=== PATIENT | female | born 1980 | race American Indian/Alaskan Native ===

== ENCOUNTER 2019-07-19 09:18 | Outpatient (CLI) | payer OTHER ==
--- NOTE | 2019-07-19 15:29 | Mammography Report ---
DIGITAL SCREENING MAMMOGRAM WITH CAD, 07/19/2019 INDICATION: Routine screening mammography. TECHNIQUE: Digital bilateral 2D mammography was obtained in the craniocaudal and mediolateral obliq ue projections. This examination was interpreted with the benefit of Computer-Aided Detection analysi s. COMPARISON: 06/29/2015 FINDINGS: Breast Density: The breasts are extremely dense, which lowers the sensitivity of mammography. There is no evidence of dominant mass, suspicious calcifications or architectural distortion in eithe r breast. Left upper outer benign scar with stable benign skin thickening. IMPRESSION: No mammographic evidence of malignancy. Follow up recommendation: Routine yearly BI-RADS Category 2: Benign. A "normal" or negative report should not discourage follow up or biopsy of a clinically significant f inding. A written summary of these findings will be mailed to the patient. The patient will be entered into a mammography reporting system which will generate a reminder letter for the patient's next appointmen t at the appropriate interval. The [employer] recommends yearly mammograms starting at age 40 and continuing as l kallie as a woman is in good health. Breast MRI is recommended for women with an approximate 20-25% or greater lifetime risk of breast cancer, including women with a strong family history of breast or ova kev cancer or who have been treated for Hodgkin's disease. Signer Name: Altaf Hays MD Signed: 07/19/2019 3:25 PM Workstation Name: [id number]
== END 2019-07-19 09:19 | disposition home or self-care (01) ==
LOC: SPVWC 09:18
PROVIDERS: ATTEND Obstetrics & Gynecology
DX: Z12.31 Encounter for screening mammogram for malignant neoplasm of breast (principal)
CPT/HCPCS: 77067

== ENCOUNTER 2021-12-20 08:21 | Outpatient (CLI) | payer OTHER ==
--- NOTE | 2021-12-20 14:00 | Ultrasound Report ---
BILATERAL DIGITAL DIAGNOSTIC MAMMOGRAM WITH CAD , 12/20/2021 RIGHT LIMITED BREAST ULTRASOUND CLINICAL INFORMATION / INDICATION: Palpable lump right breast TECHNIQUE: Digital bilateral mammographic imaging was performed. Spot compression views were obtained . Limited ultrasound was performed. This examination was interpreted with the benefit of Computer-Aid ed Detection (CAD) analysis. COMPARISON: 07/19/2019 FINDINGS: Breast Density: The breasts are heterogeneously dense, which may obscure small masses. MAMMOGRAPHIC FINDINGS: No dominant mass, suspicious calcifications, or architectural distortion in ei ther breast. Overall there is a benign changing pattern of nodularity bilaterally consistent with fib rocystic change. Ultrasound will be performed for the palpable area in the right breast. ULTRASOUND FINDINGS: Targeted ultrasound evaluation was performed of the area of interest. Sonograp hic evaluation of the right breast demonstrates several cysts in the upper outer right breast. These correspond to the palpable lump as directed by the patient. The largest cyst is 1.8 cm at 12:00. Christina ral smaller cysts at 9-10:00 appear to correspond to the palpable lump. No solid mass or suspicious s hadowing noted. IMPRESSION: No mammographic or sonographic evidence of malignancy. Several small simple cysts are pre sent throughout the upper outer quadrant of the right breast corresponding to the palpable lump. Follow up recommendation: Routine yearly BI-RADS Category 2: BENIGN. A "normal" or negative report should not discourage follow up or biopsy of a clinically significant f inding. A written summary of these findings will be mailed to the patient. The patient will be entered into a mammography reporting system which will generate a reminder letter for the patient's next appointmen t at the appropriate interval. According to the [employer], yearly mammograms are recommended starting at age 40 and continuing as long as a woman is in good health. Breast MRI is recommended for women with an vik roximately 20-25% or greater lifetime risk of breast cancer, including women with a strong family his tory of breast or ovarian cancer and women who have been treated for Hodgkin's disease. Signer Name: Cheryl Mendes MD Signed: 12/20/2021 1:55 PM Workstation Name: [id number]
== END 2021-12-20 08:22 | disposition home or self-care (01) ==
LOC: MAMMO 08:21
PROVIDERS: ATTEND Obstetrics & Gynecology
DX: N60.01 Solitary cyst of right breast (principal); Z80.3 Family history of malignant neoplasm of breast
CPT/HCPCS: 77066